=== PATIENT | male | born 1960 | race Caucasian/White ===

== ENCOUNTER 2021-11-15 16:26 | Emergency (ER) | payer SELFPAY ==
[~2021-11-15] VITALS: Ht 165.1 cm; Wt 80.0 kg
[2021-11-15 16:30] VITALS: BP 167/98
[2021-11-15] MEDS ORDERED: ONDANSETRON 4MG ODT PO STA (16:49)
[2021-11-15] MEDS ORDERED: MAGNESIUM/ALUMINUM HYDROXIDE/SIMETHICONE 30ML UDC PO STA (16:49)
== END 2021-11-15 21:16 | disposition left against medical advice (07) ==
LOC: ER 16:26
DX: R10.33 Periumbilical pain (principal); E11.9 Type 2 diabetes mellitus without complications; I10 Essential (primary) hypertension
CPT/HCPCS: 93005; 99283